=== PATIENT | male | born 2000 | race Caucasian/White ===

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

== ENCOUNTER 2021-01-18 14:40 | Emergency (ER) | payer BC ==
[~2021-01-18] VITALS: Ht 188 cm; Wt 84.1 kg
[~2021-01-18 14:40] MED LIST: AMOXICILLIN 8751 TAB PO
[2021-01-18 15:08] VITALS: TEMP 98.7
[2021-01-18] MEDS ORDERED: INDERAL 10MG10 MG PO (15:12)
[2021-01-18] MEDS ORDERED: DEPAKOTE ER 50500 MG PO (15:12)
[2021-01-18] MEDS ORDERED: AXERT6.25 MG (15:13)
[2021-01-18] MEDS ORDERED: CYMBALTA 60MG60 MG PO (15:13)
[2021-01-18] MEDS ORDERED: VYVANSE40 MG PO (15:13)
[2021-01-18 19:01] VITALS: BP 132/74; PULSE 81
== END 2021-01-18 19:01 | disposition home or self-care (01) ==
LOC: COL.ER 14:40
DX: S06.0X0A Concussion without loss of consciousness, initial encounter (principal); Z86.16 Personal history of COVID-19; W01.198A Fall on same level from slipping, tripping and stumbling with subsequent striking against other object, initial encounter; Y93.01 Activity, walking, marching and hiking; Y92.091 Bathroom in other non-institutional residence as the place of occurrence of the external cause
CPT/HCPCS: A9585

== ENCOUNTER 2022-06-14 07:26 | Emergency (ER) | payer BC ==
[~2022-06-14] VITALS: Ht 185.4 cm; Wt 79.5 kg
[~2022-06-14 07:26] MED LIST changes: +AXERT6.25 MG; +CYMBALTA 60MG60 MG PO; +DEPAKOTE ER 50500 MG PO; +INDERAL 10MG10 MG PO; +VYVANSE40 MG PO
[2022-06-14 07:35] VITALS: TEMP 97.8
[2022-06-14 08:14] LABS: HEMATOCRIT 46.4 % (42.0-52.0); HEMOGLOBIN 16.9 g/dl (13.5-18.0); MEAN CELL VOLUME 87 fl (80.0-100.0); MEAN CORPUSCULAR HEMOGLOBIN 32 pg (27-31); MEAN CORPUSCULAR HGB CONC 36 g/dl (33.0-37.0); MEAN PLATELET VOLUME 10.2 fl (7.4-10.4); PLATELET COUNT 274 K/mm3 (130-400); RED BLOOD COUNT 5.36 M/mm3 (4.20-5.60); REDCELL DISTRIBUTION WIDTH-CV 11.8 % (11.5-14.5)
[2022-06-14 08:26] LABS: STREP SCREEN NEGATIVE
[2022-06-14 08:31] LABS: ALBUMIN 4.8 gm/dL (3.5-5.0); BILIRUBIN,TOTAL 1.5 mg/dL (0.2-1.2); CREATININE, serum 0.9 mg/dL (0.72-1.25); POTASSIUM 4.2 mmol/L (3.5-4.5); TOTAL PROTEIN 7.8 gm/dL (6.2-8.1)
[2022-06-14 08:37] LABS: TROPONIN-I 0.013 ng/mL (0.00-0.033)
[2022-06-14 08:39] LABS: LYMPHOCYTE 20 % (20.0-51.0); NEUTROPHILS 70 % (42.0-75.2); PLATELET ESTIMATE NORMAL (NORMAL)
[2022-06-14 11:45] VITALS: BP 117/76; PULSE 75
== END 2022-06-14 11:45 | disposition home or self-care (01) ==
LOC: COL.ER 07:26
PROVIDERS: Emergency Medicine
DX: J98.2 Interstitial emphysema (principal); J90 Pleural effusion, not elsewhere classified; Z87.798 Personal history of other (corrected) congenital malformations; Z28.310 Unvaccinated for COVID-19
CPT/HCPCS: Q9967